=== PATIENT | female | born 1965 | race Caucasian/White ===

== ENCOUNTER 2023-04-04 05:32 | Day surgery (SDC) | payer OTHER ==
[2023-03-30 10:35] VITALS: BMI 34.3
[2023-04-04 09:16] VITALS: TEMP 97.8
[2023-04-04 09:49] VITALS: BP 143/80; PULSE 73; RESP 15
== END 2023-04-04 10:14 | disposition home or self-care (01) ==
LOC: JASU-ENDO 05:32
PROVIDERS: ATTEND Internal Medicine Gastroenterology
PROC: 0DB78ZX Excision of Stomach, Pylorus, Via Natural or Artificial Opening Endoscopic, Diagnostic (ICD-10-PCS; 2023-04-04)
PROC: 0DB68ZX Excision of Stomach, Via Natural or Artificial Opening Endoscopic, Diagnostic (ICD-10-PCS; 2023-04-04)
PROC: 0DB98ZX Excision of Duodenum, Via Natural or Artificial Opening Endoscopic, Diagnostic (ICD-10-PCS; principal; 2023-04-04 08:45)
DX: K29.50 Unspecified chronic gastritis without bleeding (principal); B96.81 Helicobacter pylori [H. pylori] as the cause of diseases classified elsewhere
CPT/HCPCS: 88305-TC

== ENCOUNTER 2023-12-10 08:10 | Emergency (ER) | payer OTHER ==
[2023-12-10 08:21] VITALS: BMI 28.8
[2023-12-10] MEDS ORDERED: ASPIRIN 81 MG CHEWABLE TABLETS ONE (09:09)
[2023-12-10] MEDS ORDERED: ACETAMINOPHEN INJECTION 100 ML IVPB ONE (09:09)
[2023-12-10 09:20] LABS: BASO % 0.9 % (0-2.0); EOS % 1.1 % (0-4.5); HEMATOCRIT 39.3 % (32.4-45.2); LYMPH % 33.5 % (8-40); MCH 27.8 pg (25.7-33.7); MCHC 33.1 g/dl (32.0-36.0); MEAN CELL VOLUME 83.9 fl (80-96); MEAN PLT VOLUME 8.4 fl (7.5-11.1); MONO % 10.4 % (3.8-10.2); NEUT % 54.1 % (42.8-82.8); PLATELET COUNT 316 10^3/uL (134-434); RBC 4.69 M/mm3 (3.60-5.2); RDW 14.4 % (11.6-15.6); WHITE BLOOD COUNT 5.8 K/mm3 (4.0-10.0)
[2023-12-10 09:27] LABS: INR 1.02 (0.83-1.09); PROTHROMBIN TIME (PATIENT) 11.7 SEC (9.7-13.0)
[2023-12-10 09:29] LABS: ACTIVATED PTT 30.1 SECONDS (25.2-36.5)
[2023-12-10] MEDS: SODIUM CHLORIDE 0.9% 500 ML INFUS.BAG IV ONE (09:35)
[2023-12-10] MEDS: ACETAMINOPHEN 1000 MG/100 ML BAG IVPB ONE (09:35)
[2023-12-10] MEDS: ASPIRIN 81 MG CHEWABLE TABLETS PO ONE (09:35)
[2023-12-10 09:49] LABS: POTASSIUM 4.4 mmol/L (3.5-5.1)
[2023-12-10 09:51] LABS: ALBUMIN 3.6 g/dl (3.4-5.0); BLOOD UREA NITROGEN 11.4 mg/dL (7-18)
[2023-12-10 09:54] LABS: CREATININE 0.6 mg/dL (0.55-1.3)
[2023-12-10 09:56] LABS: BILIRUBIN,TOTAL 0.4 mg/dL (0.2-1); TOT PROT 7.2 g/dl (6.4-8.2)
[2023-12-10 11:12] VITALS: BP 138/69; PULSE 65; RESP 17; TEMP 97.7
== END 2023-12-10 13:08 | disposition home or self-care (01) ==
LOC: JER 08:10
PROC: 3E033NZ Introduction of Analgesics, Hypnotics, Sedatives into Peripheral Vein, Percutaneous Approach (ICD-10-PCS; principal; 2023-12-10)
DX: R07.89 Other chest pain (principal); R00.2 Palpitations; R42 Dizziness and giddiness; R06.02 Shortness of breath
CPT/HCPCS: 36415; 71045-TC-FY; 80053; 84439; 84443; 84484; 85025; 85610; 85730; 93005; 93010; 99285-25; J0131

== ENCOUNTER 2024-12-13 07:56 | Day surgery (SDC) | payer OTHER ==
[2024-12-11 09:36] VITALS: BMI 26.4
[2024-12-13 11:19] VITALS: TEMP 97.9
[2024-12-13 11:33] VITALS: RESP 18
[2024-12-13 12:00] VITALS: BP 125/63; PULSE 75
== END 2024-12-13 12:00 | disposition home or self-care (01) ==
LOC: JASU-SURG 07:56
PROVIDERS: ATTEND Internal Medicine Gastroenterology
PROC: 0DJD8ZZ Inspection of Lower Intestinal Tract, Via Natural or Artificial Opening Endoscopic (ICD-10-PCS; principal; 2024-12-13 10:45)
DX: Z12.11 Encounter for screening for malignant neoplasm of colon (principal); K64.8 Other hemorrhoids; K57.30 Diverticulosis of large intestine without perforation or abscess without bleeding
CPT/HCPCS: 82962